=== PATIENT | female | born 1950 | race Caucasian/White ===

== ENCOUNTER 2025-05-16 08:09 | Emergency (ER) | payer MEDICARE, SELFPAY ==
[2025-05-16] VITALS (51 sets, daily range): BP systolic 150–201; BP diastolic 74–94; PULSE 62–95; RESP 9–23; TEMP 36.5; O2SAT 81–100
--- NOTE | 2025-05-16 08:39 | ED.GENADUL_ITS ---
Discharge Plan Disposition Patient Disposition: Home Condition: Improving Discharge Details Clinical Impression: Balance problem Primary Care Provider: [facility] Provider: Naina Aguilar Home Meds and New Rx's Prescriptions: New hydrochlorothiazide 25 mg tablet 25 mg PO DAILY Qty: 30 0RF meclizine 12.5 mg tablet 12.5 mg PO BID PRN (Reason: dizziness) Qty: 14 0RF Continued vit D3-vit K2-olive leaf ext 25 mcg-20 mcg- 250 mg capsule PO ibuprofen [Advil] 200 mg tablet 200 mg PO ONCE lactobacillus combination no.9 [Adult 50 Plus Probiotic] .ROUTE docusate sodium [Colace] 100 mg capsule 100 mg PO DAILY fluoxetine .ROUTE losartan .ROUTE hydrochlorothiazide PO magnesium PO Discharge Instructions Instructions: Standing Balance Exercises, Beginner Additional Instructions: As we discussed, your labs and imaging are reassuring here today. Your blood pressure is elevated but you have not been on any medication, prescription for hydrochlorothiazide has been sent to pharmacy locally. There is no evidence to suggest a stroke or other more emergent pathology, you did respond well to her vertigo medications. With her history of vertigo, as well as ear issues, inner ear cause of dizziness and balance issues may be the primary issue today. You may use the Antivert as prescribed. Please ensure staying well-hydrated. Please continue your other medications as prescribed. Please follow-up with primary care doctor home. Copy of your CT scan and MRI sent with you so you can bring these back to your [facility]. If you develop weakness, sensory changes, worsening balance issue, headache, chest pain, shortness of breath or other new/worsening symptoms please seek care urgently once again. Discharge Data Discharge Date/Time-TO BE ENTERED AT DEPARTURE: 05/16/25 15:08 HPI General Date/Time Provider Initiated Documentation: 05/16/25 08:36 . Limitations to Documentation: no limitations . Information obtained by: patient, family and RN notes reviewed . History of Present Illness 75 year old F presents to the emergency department with the chief complaint of balance issues, BLE edema, fatigue, described as moderate, Quality is described as other (no pain, fatigue ), and is localized to the lower extremity (struggles in balance, not isolated to specific side). Patient started experiencing this week(s) (1) and it has been constant. No relieving factors improve symptom(s), No exacerbating factors reported . Patient notes weakness (no focal weakness, more fatigue); denies confusion, chest pain, diaphoresis, fever/chills, headaches, loss of appetite, nausea/vomiting, rash, shortness of breath and syncope. Patient did receive the following treatments prior to arrival, none Related Data Home Medications ?Medication ?Instructions ?Recorded ?Confirmed docusate sodium 100 mg capsule 100 mg PO DAILY 5 05/16/25 (Colace) fluoxetine .ROUTE 05/16/25 hydrochlorothiazide PO 05/16/25 hydrochlorothiazide 25 mg tablet 25 mg PO DAILY #30 ta bs 05/16/25 ibuprofen 200 mg tablet (Advil) 200 mg PO ONCE 5 05/16/25 lactobacillus combination no.9 .ROUTE 05/16/25 losartan .ROUTE 05/16/25 magnesium PO 05/16/25 meclizine 12.5 mg tablet 12.5 mg PO BID PRN dizziness #14 05/16/25 tabs vitamin D3 25 mcg-vitamin K2 20 cap PO 05/16/25 mcg-olive leaf extract 250 mg capsule Previous Rx's ?Medication ?Instructions ?Recorded hydrochlorothiazide 25 mg tablet 25 mg PO DAILY #30 ta bs 05/16/25 meclizine 12.5 mg tablet 12.5 mg PO BID PRN dizziness #14 05/16/25 tabs Allergies Allergy/AdvReac Type Severity Reaction Status Date / Time meperidine (From Demerol) Allergy Intermediate Nausea Verified 05/16/25 08:18 General Stated Complaint: GenMedical YONATAN: 3 Review of Systems Constitutional Constitutional: Reports as per HPI, Denies chills, Reports fatigue, Denies fever(s) and Denies frequent falls Eyes Eyes: Reports as per HPI, Denies blurry vision and Denies change in vision ENT Ears, Nose, Mouth, and Throat: Denies vertigo, Denies neck pain and Reports disequilibrium Cardiovascular Cardiovascular: Reports as per HPI, Denies chest pain, Reports lightheadedness (brought on by movements of her head or body ), Denies dyspnea and Denies dyspnea on exertion Respiratory Respiratory: Reports as per HPI, Denies chest congestion, Denies cough, Denies dyspnea and Denies dyspnea on exertion Gastrointestinal Gastrointestinal: Reports as per HPI, Denies abdominal pain, Denies change in bowel habits, Reports nausea (associates with lightheadedness) and Denies vomiting Musculoskeletal Musculoskeletal: Reports as per HPI, Denies myalgias, Denies muscle cramps, Denies neck pain and Denies numbness Integumentary/Breasts Skin/Breast: Reports as per HPI and Denies rash Neurologic Neurologic: Reports as per HPI, Denies abnormal movements, Denies abnormal speech, Denies behavioral changes, Denies confusion, Denies vertigo, Denies frequent falls, Reports lack of coordination (balance issues), Denies localized weakness, Denies numbness, Denies sensory deficit, Denies paresthesias and Reports disequilibrium Psychiatric Psychiatric: Denies behavioral changes and Denies confusion Endocrine Endocrine: Reports fatigue Exam Const General: cooperative, healthy appearing, comfortable, no acute distress, well developed and well groomed Nutritional Appearance: average body habitus and well nourished Orientation: alert, awake and oriented x3 HENMT Head: normal to inspection, no palpable skull fracture, normocephalic and atraumatic Ears: hearing grossly normal bilaterally General nose exam: external nose normal Mouth: oral mucosae normal and moist mucous membranes Throat: posterior oropharynx normal Eyes General: appearance normal, both eyes and all related structures Alignment and Position: alignment normal Periorbital: periorbital findings normal Eyelids: eyelids normal Sclera: sclerae normal Cornea: corneas normal Pupils: PERRL EOM: EOM intact bilaterally Resp Effort & Inspection: normal respiratory effort, able to speak in complete sentences and no respiratory distress Auscultation: clear to auscultation bilaterally, no rales, no rhonchi and no wheezes Cardio Rate: regular rate Rhythm: regular rhythm Heart Sounds: S1 normal and S2 normal Back/Spine/Pelvis Back: other (several scars lower back, no erythema, swelling, warmth, pain) Skin General skin exam: no rashes or lesions noted Neuro General: patient alert, patient awake and patient oriented x3 Cranial Nerves: CN's II-XI intact bilaterally Cognition: normal cognition Speech: speech normal Gait: normal gait Motor: muscle tone normal throughout, strength 5/5 throughout, no pronator drift, no movement abnormalities noted and no fasciculations Sensory Exam: no sensory deficits noted DTR's: Rt Biceps: 2+, Lt Biceps: 2+, Rt Brachioradialis: 2+, Lt Brachioradialis: 2+, Rt Patellar: 2+, Lt Patellar: 2+, Rt Ankle: 2+ and Lt Ankle: 2+ Plantar Reflexes: Equivocal: bilateral Coordination: [id number]-[id number] test normal, rqfw-[id number] test normal, Romberg test abnormal (sways, had to end early), Does not sway with eyes open and rapid alternating movement UE normal Extrem General: normal to inspection, capillary refill normal, no pedal edema and no calf tenderness Course Vital Signs Vital signs: Vital Signs Temperature 36.5 C 05/16/25 08:13 Pulse 77 05/16/25 08:13 Respiratory Rate 15 05/16/25 08:13 Blood Pressure 150/78 H 05/16/25 08:13 Pulse Oximetry 98 05/16/25 08:13 Temperature 36.5 C 05/16/25 08:17 Temperature Source Oral 05/16/25 08:17 Pulse 77 05/16/25 08:17 Respiratory Rate 15 05/16/25 08:17 Blood Pressure 150/78 H 05/16/25 08:17 Blood Pressure Position Sitting 05/16/25 08:17 Pulse Oximetry 98 05/16/25 08:17 Oxygen Delivery Method Room Air 05/16/25 08:17 Oxygen Flow Rate 0 05/16/25 08:17 Pain Level 7 05/16/25 08:17 Medical Decision Making Patient is one 75-year-old female, brought in by family, past medical history significant for hypertension, family history of ACS, presented with chief complaint of bilateral lower extremity edema, weakness, balance issues. [facility] reports that she has chronic issues with balance, unclear etiology, feels like sometime she trips over her feet. Over the past week, she has noticed this to be worse, has wanted to have assistance when ambulating. She is here from [place], staying with family fo t next few weeks. Typically takes HCTZ which she did not bring with her d/t prescription issue. Reports increased BLE edema. Denies SOB, CP. STates that along with amanda balance issues, she feels slightly light headed. This is particularly problemantic when she turns her head or move. This does not sound to be exertional, more with rotational movements. She has hx of vertigo but states that this is not as severe as when she has had that issue in the past. She has had allergies, nasal congestion, slight cough for several w eeks. No fevers/chills. Reports that balance issues affect both legs, no focal deficits. Patient does report that she has chronic back pain, has had multiple surgeries of the lumbar spine, no acute change in this. On exam, patient appears nontoxic. Resting comfortably no acute distress. Hemodynamically stable. Her neurologic exam is intact, no confusion or focal deficits appreciated. I did ambulate with the patient however and when she first stood at the side of the bed she did have some of those lightheaded or dizziness sensations. She denies this turning into true vertigo and the room was never actually spinning around her. However, this did seem to last, particular when she for started walking which did improve. She did walk with my assistance and again, no focal deficits were noted. She does have a positive Romberg but otherwise, neurologically intact. With a positive Romberg, primarily concern for CVA. Will obtain CTA of head and neck. Patient had minimal amount of bilateral lower extremity edema, will restart the hydrochlorothiazide for the patient. She was not able to fill this prior to her flight here from [place]. She is going be here for the next few weeks, we will plan to refill. Patient is not having any shortness of breath or chest pain. No pleuritic pain. No tachycardia or hypoxia. No evidence to suggest ACS or pulmonary emboli. She does have chronic back pain, no new symptoms or symptoms that she would just aortic dissection or aneurysm. She denies any urinary symptoms suggestive of UTI. With the patient's chronic cough, will obtain a chest x-ray and will obtain troponins out of abundance of caution but again, low suspicion for any ACS at this point. Labs reviewed. No leukocytosis. No anemia. CMP without significant abnormality. Troponin within normal limits and stable x 3. UA shows no evidence to suggest infection. She was negative for flu and COVID. CTA reviewed by radiologist with no acute abnormality noted. Chest x-ray also reviewed by radiologist with no acute abnormality noted. Old rib fracture noted on the left and hardware in lumbar spine both of which were known to patient. I discussed this with the patient and her [id number]-[id number]. She is now describing some other inner ear symptoms that she had been having, no pain but more some slight ringing and long-term issues with this. As this does seem to c ome on with sudden rotations and movement such as classically thought with BPPV, we will try a dose of Antivert. However, with the positive Romberg as well as patient's age and comorbidities, I do feel that it is appropriate to obtain an MRI to further evaluate for possible CVA that was not able to be detected with a CTA such as an LVO. Given the length of symtpoms and her NIHSS score, she would not be alytic candidate. Brain MRI was obtained and no acute abnormality was noted. No focus of restricted diffusion to suggest acute infarct per radiologist. I reviewed these findings with the patient and her family. Patient reports that when moving in and out of the MRI machine as well as getting up while over in the radiology department, she noted a vast improvement after having taken oral Antivert. She was able to ambulate here and is doing significantly better, this may point more towards an inner ear issue particularly in the setting of reassuring MRI. Close does not sound to be the classic symptoms she has with her BPPV, her other URI symptoms could also lead to more of a labyrinthitis that is causing some of her symptoms. I did discuss this with the patient and her [id number]-[id number]. They are staying locally and are able to return if she has any new or worsening symptoms. We will restart her hydrochlorothiazide, continue her on the as needed Antivert. I encourage strict return precautions. Encourage close follow-up with primary care. Patient sent home with disc of her CT and MRI for their records in [place]. I did encourage hydration, patient did appear slightly dehydrated and sounds like she was not drinking as much as she typically does, she did receive fluids here which may also have helped with some of her symptoms. She has been profoundly symptomatic with dehydration episodes historically per patient and family. At this time, no evidence to suggest ACS, CVA, other emergent cause of her symptoms. Improved after Antivert which we will continue the patient on and encourage close follow-up with primary care. All of their questions and concerns were addressed and they are agreement this plan. [facility] All Active Problems (Updated 05/16/25 @ 14:36 by CRISTOFER Weinstein) Balance problem (Acute) Social History Smoking/Tobacco Use Status: Never Smoking risk assessment performed?: Yes Alcohol Intake: never Drug use: Never Substance use type: does not use Housing: house
--- NOTE | 2025-05-16 09:00 | RT.EKG_ITS ---
APPROVED REPORT Exam: Resting ECG Reason for Exam: concern for CVA Patient Location: E HR:70 bpm ECG Measurements Heart Rate 70 AXIS IL 138 P 33 QRSd 93 QRS 23 QT 416 T 10 QTc 448 Conclusion Sinus rhythm...normal P axis, V-rate 60- 99 No Occlusion TX
--- NOTE | 2025-05-16 09:00 | DI.RAD_ITS ---
Exam(s) XR CHEST 2V PA LATERAL EXAM: XR CHEST 2V PA LATERAL CLINICAL HISTORY: confusion, cough TECHNIQUE: 2D digital imaging was performed. Two views. COMPARISON: No exams were available for comparison FINDINGS: HEART: Normal size. Aorta: Not dilated. PULMONARY VASCULATURE: Normal. MEDIASTINUM: Unremarkable. LUNGS: Clear. PLEURAL SPACE: No pleural effusion or pneumothorax. BONE:Unremarkable for age. Old left rib fracture. Degenerative changes in the thoracic spine. Hardware in the lumbar spine. SOFT TISSUES: Unremarkable. IMPRESSION: No acute abnormality. DATA REPOSITORY: RADIATION DOSE DELIVERED:
--- NOTE | 2025-05-16 09:00 | DI.CT_ITS ---
Exam(s) CT BRAIN NECK CTA EXAM: CT BRAIN NECK CTA CLINICAL HISTORY: balance issues, right leg fatigued. TECHNIQUE: Imaging Protocol: Axial CT angiography was performed with multi- slice acquisition and multi-planar and MIP reconstructions. CONTRAST MATERIAL: Intravenous: Omnipaque 350 Contrast volume:100 ml COMPARISON: No exams were available for comparison FINDINGS: CT Head W/O and W contrast: Ventricles and Extra axial spaces: Normal in size and morphology for the patient's age. Hemorrhage: None. Cerebral parenchyma: No evidence of acute infarct or mass. Midline shift: None. Brainstem/Cerebellum: No acute findings.. Calvarium: Normal. Visualized Paranasal sinuses/Mastoids: Clear. Soft Tissues: Unremarkable. Enhancement: Normal. Venous sinuses are patent. CTA Brain W: Internal Carotid Arteries: Right: No aneurysm, occlusion or significant stenosis. Left: No aneurysm, occlusion or significant stenosis. Middle Cerebral Arteries: Right: No aneurysm, occlusion or significant stenosis. Left: No aneurysm, occlusion or significant stenosis. Anterior Cerebral Arteries: Right: No aneurysm, occlusion or significant stenosis. Left: No aneurysm, occlusion or significant stenosis. Posterior cerebral Arteries: Right:. origin. No aneurysm, occlusion or significant stenosis. Left: No aneurysm, occlusion or significant stenosis. Vertebral Arteries: Right: No aneurysm, occlusion or significant stenosis. Left: No aneurysm, occlusion or significant stenosis. Basilar Artery: No aneurysm, occlusion or significant stenosis. CTA Neck W: Common Carotid: No significant atherosclerotic changes. Right: No dissection, occlusion or significant stenosis. Left: No dissection, occlusion or significant stenosis. External Carotid: Right: No dissection, occlusion or significant stenosis. Left: No dissection, occlusion or significant stenosis. Internal Carotid: Right: No dissection, occlusion or significant stenosis. Left: No dissection, occlusion or significant stenosis. Vertebral Artery: Right: No dissection, occlusion or significant stenosis. Left: No dissection, occlusion or significant stenosis. A left-sided superior vena cava is noted. Typical aortic arch branch vessel pattern. Lung Apices: No acute findings. Bones: No acute abnormality. Soft Tissues: Normal. IMPRESSION: 1. CTA brain: Normal CTA examination of the [place]. 2. Head CT: No acute abnormality. 3. CTA neck: No evidence of occlusion, significant stenosis or dissection. Left-sided superior vena cava. RADIATION DOSE DELIVERED: 2,160.16mGy.cm Total DLP DATA REPOSITORY: All CT scans at this facility are submitted to the National Radiology Data Registry (NRDR) Dose Index Registry (DIR) with the [employer] [place] [employer] ([employer]). RADIATION OPTIMIZATION: All CT scans at this facility use at least one of these dose optimization techniques: automated exposure control; mA and/or kV adjustment per patient size (includes targeted exams where dose is matched to clinical indication); or iterative reconstruction.
[2025-05-16 09:14] LABS: Abs Immature Grans 0.02 10^3/uL (0.0-0.06); HCT 44.4 % (36.0-46.0); HGB 15.4 g/dL (11.2-15.7); Immature Grans % 0.3 %; MCH 31.1 pg (27.0-33.0); MCHC 34.7 % (32.0-36.0); MCV 90 fL (80-95); MPV 10.2 fL (8.0-11.0); Platelet Count 211 10^3/uL (130-400); RBC 4.95 10^6/uL (3.93-5.22); RDW 12.8 % (11.7-14.6); RDW-SD 42.3 fL; WBC 7.45 10^3/uL (4.4-10.8)
[2025-05-16 09:40] LABS: ALT 22 U/L (14-59); AST 17 U/L (15-37); Albumin 4.2 g/dL (3.4-5.0); Alkaline Phosphatase 60 U/L (46-116); Anion Gap 12.2 mmol/L (3-11); BUN 13 mg/dL (7-18); Bilirubin, Total 0.7 mg/dL (0.2-1.0); CO2 24.8 mmol/L (21.0-32.0); Calcium 9.2 mg/dL (8.5-10.1); Chloride 106 mmol/L (98-107); Estimated GFR 89.58 (mL/min/1.73m2); Glucose 95 mg/dL (74-106); Magnesium 2.0 mg/dL (1.8-2.4); Potassium 3.6 mmol/L (3.5-5.1); Sodium 143 mmol/L (136-145); Total Protein 7.4 g/dL (6.4-8.2); Troponin I 7 ng/L (<or=51)
[2025-05-16 10:01] LABS: Troponin I 6 ng/L (<or=51)
[2025-05-16] MEDS: Normal Saline - Diluent 50 ML VIAL IJ (10:11)
[2025-05-16] MEDS: Omnipaque 350 MG/ML 100 ML BTL 70 ML IJ (10:11)
[2025-05-16 10:19] LABS: Glucose Negative (Negative)
[2025-05-16 10:24] LABS: COVID-19 PCR Negative (Negative); RSV PCR Negative (Negative)
[2025-05-16 11:40] LABS: Troponin I 7 ng/L (<or=51)
[2025-05-16] MEDS: Normal Saline 500 ML IV (11:48)
[2025-05-16] MEDS: Meclizine 12.5 MG TAB PO (11:48)
--- NOTE | 2025-05-16 12:00 | DI.MRI_ITS ---
Exam(s) MR BRAIN WO EXAM: MR BRAIN WO CLINICAL HISTORY: balance issues, +Romberg. TECHNIQUE: Multiplanar multisequence MRI of the brain was performed. Additional thin T2 space axial sequences through the level of the internal auditory canals. CONTRAST MATERIAL: Noncontrast COMPARISON: No exams were available for comparison FINDINGS: VENTRICLES AND EXTRA AXIAL SPACES: Normal in size and morphology for the patient's age. HEMORRHAGE: None. CEREBRAL PARENCHYMA: No focus of restricted diffusion to suggest acute infarct. No space-occupying lesion identified. Mild atrophy. Minimal scattered high signal foci in the white matter likely reflecting chronic microvascular changes. BRAINSTEM/CEREBELLUM: Normal. CALVARIUM: Normal. ENHANCEMENT: No suspicious enhancement identified. VISUALIZED PARANASAL SINUSES/ MASTOIDS: Clear. The 5th, 7th and 8th nerves are visible and show no thickening or focal mass. Orbits: Unremarkable. Pituitary: Not enlarged. Vasculature: Normal flow voids. IMPRESSION: No acute abnormality. DATA REPOSITORY:
[2025-05-16] MEDS: hydroCHLOROthiazide 25 MG TAB PO (13:38)
== END 2025-05-16 15:08 | disposition home or self-care (01) ==
PROVIDERS: Emergency Provider Physician Assistant
DX: R26.81 Unsteadiness on feet (principal); R11.0 Nausea; R51.9 Headache, unspecified; I10 Essential (primary) hypertension
CPT/HCPCS: 36415; 70496; 70498; 80053; 87637; 93005; 96360; 99285; 70551; 71046; 81003; 83735; 84484; 85025; 93010; 99284; J3490